=== PATIENT | male | born 1985 | race Caucasian/White ===

== ENCOUNTER → 2019-09-18 | Outpatient (CLI) | payer BC ==
--- NOTE | 2019-09-18 10:55 | Diagnostic Imaging Report ---
PROCEDURE: MRI lumbar spine. TECHNIQUE: Multiplanar, multisequence MRI of the lumbar spine was performed without contrast. INDICATION: Low back pain with right leg pain COMPARISON: None FINDINGS: For the purposes of this exam, last well-formed disc space is denoted the L5-S1 level. 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 AP static alignment is maintained. There is no significant anterolisthesis or retrolisthesis. There is no evidence of jumped facets. Vertebral body heights are maintained. There is no evidence of acute fracture. Marrow signal is normal throughout. Intervertebral disc heights are fairly well maintained, although there is loss of normal T2 bright signal at L4-L5 and L5-S1 levels. Included portions of the distal cord are unremarkable. Conus terminates at approximately the T12-L1 level. No abnormal intrathecal filling defects are seen. Pre- and paravertebral soft tissue structures are unremarkable. Axial images demonstrate the following: T12-L1 through L2-L3: There is no large disc bulge or focal protrusion. There is no significant spinal canal or neural foraminal stenosis. L3-L4: There is mild broad-based posterior disc bulge and bilateral ligamentum flavum laxity and facet arthropathy. As a result, there is minimal narrowing of the spinal canal and bilateral neural foramen. L4-L5: There is broad-based posterior disc bulge and bilateral ligamentum flavum laxity and facet arthropathy. As a result, there is moderate narrowing of the spinal canal and bilateral neural foramen. L5-S1: There is a right paracentric posterior disc protrusion superimposed on broad-based posterior disc bulge. As a result, there is mass effect on the exiting right S1 nerve root. There is otherwise mild narrowing of the spinal canal and bilateral neural foramen. IMPRESSION: 1. Multilevel degenerative changes of the lumbar spine, greatest at the L5-S1 level where there is right paracentric posterior disc protrusion resulting in mass effect on the exiting right S1 nerve root. 2. No acute fracture or dislocation. Dictated by: Dictated on workstation # [id number]
== END ==
LOC: RAD 07:47
PROVIDERS: ATTEND Family Medicine
DX: M47.817 Spondylosis without myelopathy or radiculopathy, lumbosacral region (principal); M51.17 Intervertebral disc disorders with radiculopathy, lumbosacral region
CPT/HCPCS: 72148

== ENCOUNTER 2021-01-21 09:35 | Emergency (ER) | payer BC ==
--- NOTE | 2021-01-21 10:06 | ED Lower Extremity ---
General Chief Complaint: Lower Extremity Stated Complaint: KNEE PAIN Nursing Triage Note: R knee pain x 2 days. No known injury. Pain is rated at 8/10. Has been taking ibuprofen, tramadol, and flexeril for pain. Nursing Sepsis Screen: No Definite Risk Source: patient History of Present Illness Date Seen by Provider: Jan 21, 2021 Time Seen by Provider: 09:37 Initial Comments 35 yo male presents with right knee pain for last 2 days. No known injury or traum. He has tired ibuprofen, tramadol and flexeril without relief. He had the medicine left over from prior episodes of sciatica. The medication was not helping for his knee pain however. He could not remember any specific injury for his knee. 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 He had tried taking ibuprofen and resting as well as the other medications thinking things would improve and he could follow-up with his primary care doctor during the week. Earlier today when he got up he was having such severe pain that it was making him nauseated and lightheaded when he tried to walk and move his knee. He denies any fever or chills. There is no redness or warmth to his knee. He has mild swelling to the medial and superior aspect of his knee on the right side where he has the severe pain. Allergies and Home Medications Allergies Coded Allergies: No Known Drug Allergies (Unverified , 01/21/21) Home Medications Hydrocodone/Acetaminophen 1 Each Tablet, 1 TAB PO Q6H PRN for PAIN-SEVERE (8-10) Prescribed by: FATOU RUFF on 01/21/21 1051 Patient Home Medication List Home Medication List Reviewed: Yes Review of Systems Constitutional: No chills; dizziness (when having severe pain in knee); No fever EENTM: no symptoms reported Respiratory: no symptoms reported Cardiovascular: no symptoms reported Gastrointestinal: no symptoms reported Genitourinary: no symptoms reported Musculoskeletal: see HPI, joint pain (severe right knee pain over last 2 days without any specific trauma or injury) Skin: no symptoms reported Psychiatric/Neurological: Denies Numbness, Denies Paresthesia Past Zqpeboa-[id number]-[id number] Hx Past Med/Social Hx: Reviewed Nursing Past Med/Soc Hx Patient Social History Alcohol Use: Denies Use Smoking Status: Never a Smoker 2nd Hand Smoke Exposure: No Recent Infectious Disease Expo: No Recent Hopitalizations: No Seasonal Allergies Seasonal Allergies: No Past Medical History Surgeries: No Respiratory: No Cardiac: No Neurological: No Genitourinary: No Gastrointestinal: No Musculoskeletal: Yes Chronic Back Pain Endocrine: No HEENT: No Cancer: No Psychosocial: No Integumentary: No Blood Disorders: No Physical Exam Vital Signs Vital Signs - First Documented 01/21/21 09:38 Temp 36.0 Pulse 84 Resp 16 B/P (MAP) 119/73 (88) Pulse Ox 98 Capillary Refill : Less Than 3 Seconds Height, Weight, BMI Height: '" Weight: lbs. oz. kg; BMI Method: General Appearance: WD/WN, mild distress Cardiovascular: normal peripheral pulses Knees: left knee non-tender, left knee normal inspection, left knee normal range of motion, left knee no evidence of injury; right knee joint effusion ( superior/medial aspect to the patella area), right knee pain, right knee soft tissue tenderness, right knee swelling (superior/medial aspect leading to the patella), right knee other (tender to palpation over the patella and superior/medial aspect of the knee. Worse with flexion of the knee. Negative drawer sign. No Varus or Valgus laxity or pain.) Neurologic/Psychiatric: board catcher II-XII nml as tested, no motor/sensory deficits, alert, oriented x 3 Skin: normal color, warm/dry; No ecchymosis Progress/Results/Core Measures Results/Orders My Orders Orders - FATOU RUFF MD Knee 3 View Right (01/21/21 10:03) Knee Immobilizer (01/21/21 10:04) Vital Signs/I&O 01/21/21 09:38 Temp 36.0 Pulse 84 Resp 16 B/P (MAP) 119/73 (88) Pulse Ox 98 Blood Pressure Mean: 88 Progress Progress Note #1: Progress Note obtain basic xrays of the knee to see if there is any bony abnormality. Counseled that he may still need MRI to see if there is soft tissue or ligament injury Progress Note #2: Time: 10:28 Progress Note No acute bony abnormality on the xrays. Treat with knee immobilizer and weight bearing as tolerated. Pt states he can get crutches on his own. Follow up with pcp and Ortho if needed for MRI if pain persists or not improving with NSAIDS and rest with the immobilizer. Diagnostic Imaging Diagonstic Imaging: Xray Plain Films/CT/US/NM/MRI: knee Comments NAME: MARIA L [facility] REC#: [id number] PT STATUS: REG ER : 1985 PHYSICIAN: FATOU RUFF MD ADMIT DATE: 01/21/21/ER FS Draft Date of Exam:01/21/21 KNEE 3 VIEW RIGHT EXAMINATION: Right knee at 1008 AM INDICATION: Knee pain Three views were obtained. There are no prior studies available for comparison. There is no fracture, dislocation or acute bony abnormality evident. The knee joint is well maintained. The soft tissues are unremarkable. IMPRESSION: There is no evidence for an acute bony abnormality. Dictated on workstation # [id number] Dict: 01/21/21 1019 Trans: 01/21/21 1025 [id number] Interpreted by: DAPHNE LE MD Electronically signed by: Departure Impression Primary Impression: Right medial knee pain Additional Impression: Swelling of right knee joint Disposition: HOME, SELF-CARE Condition: Stable Departure-Patient Inst. Decision time for Depature: 10:51 Referrals: SILKE FERRARI MD (PCP/Family) Primary Care Physician MARILEE SALDIVAR MD Patient Instructions: Knee Immobilizer (DC), Knee Pain ED, Swollen Joints (DC) Add. Discharge Instructions: Wear knee immobilizer at all times except when you are bathing. Do this until you follow up with primary care provider or Orthopedics this week in clinic. Orthopedics Dr. Saldivar or his assistant designer FARA Das are available by calling [phone] Ice 20-30 minutes every few hours as needed to try and help with pain and swelling. Continue with Ibuprofen for inflammation and pain. All discharge instructions reviewed with patient and/or family. Voiced understanding. Scripts Hydrocodone/Acetaminophen (Hydrocodone-Acetamin 5-325 mg) 1 Each Tablet 1 TAB PO Q6H PRN for PAIN-SEVERE (8-10) for 3 Days, #12 TAB 0 Refills Prov: FATOU RUFF MD 01/21/21 Work/School Note: Work Release Form Date Seen in the Emergency Department: Jan 21, 2021 Return to Work: Jan 23, 2021 Other Restrictions Listed Below: Light duty wearing knee immobilizer until cleared by clinic. FATOU RUFF MD Jan 21, 2021 10:06
--- NOTE | 2021-01-21 10:26 | Diagnostic Imaging Report ---
EXAMINATION: Right knee at 1008 AM INDICATION: Knee pain Three views were obtained. There are no prior studies available for comparison. There is no fracture, dislocation or acute bony abnormality evident. The knee joint is well maintained. The soft tissues are unremarkable. IMPRESSION: There is no evidence for an acute bony abnormality. Dictated by: Dictated on workstation # [id number]
[2021-01-21] MEDS ORDERED: ACHD5005 PO (10:50)
[2021-01-21 11:01] VITALS: BP 141/66
== END 2021-01-21 11:01 | disposition home or self-care (01) ==
LOC: EDUNIT# 09:35 → ER FS 09:36
DX: M25.561 Pain in right knee (principal); M25.461 Effusion, right knee; G89.29 Other chronic pain; M54.9 Dorsalgia, unspecified; Z79.891 Long term (current) use of opiate analgesic
CPT/HCPCS: 73562; L1830